=== PATIENT | male | born 1940 | race Caucasian/White ===

== ENCOUNTER 2016-07-21 23:53 | Emergency (ER) | payer MEDICARE ==
[~2016-07-21 23:53] MED LIST: ACET650T34 PO; AMLO5TAB2 PO; AMLO5TAB4 PO; ASPI325T4 PO; BISA10SU65 PR; CARB1TAB20 PO; CARB1TAB46 PO; CEFD300C37 PO; ERGO500017 PO; FAMO20TA7 PO; FURO20TA3 PO; FURO40TA6 PO; HYDR25TA6 PO; LISI40TA PO; LORA1TAB PO; LORA2TAB PO; METO25TA35 PO; ONDA-39 PO; POLY17PO5 PO; SENN1TAB7 PO; SIMV10TA PO; TRAM-28 PO; TRAM50TA2 PO; TRAZ100T15 PO; VALP250C59 PO
[2016-08-02] MEDS ORDERED: LISINOPRIL 20 MG TABLET ONE (17:53)
[2016-08-02] MEDS ORDERED: ACETAMINOPHEN 325 MG TABLET ONE (17:53)
[2016-08-20] MEDS ORDERED: BACITRACIN ZINC OINT 500U/GM, 0.9 GM ONE (09:53)
== END 2016-07-21 23:56 ==
LOC: ED 23:55
DX: Z02.9 Encounter for administrative examinations, unspecified (principal)

== ENCOUNTER 2016-07-21 23:57 | Inpatient (IN) | payer MEDICARE ==
[~2016-07-21] VITALS: Ht 170.2 cm; Wt 87.6 kg
[2016-07-22] MEDS ORDERED: PANTOPRAZOLE 80 MG in SODIUM CHLORIDE 0.9% 50 ML IVPB ONE (00:01)
[2016-07-22] MEDS ORDERED: PANTOPRAZOLE 80 MG in SODIUM CHLORIDE 0.9% 100 ML IV SCH (00:01)
[2016-07-22] MEDS ORDERED: ONDANSETRON 2MG/ML, 2ML ONE (00:05)
[2016-07-22] MEDS ORDERED: SODIUM CHLORIDE 0.9% 1,000ML IVBOLUS ONE (00:30)
[2016-07-22] MEDS ORDERED: SODIUM CHLORIDE FLUSH 10ML SYR IVF ONE (00:30)
[2016-07-22] MEDS ORDERED: CEFTRIAXONE PMX 1GM/50ML 50 ML IV ONE (00:30)
[2016-07-22] MEDS ORDERED: ONDANSETRON 2MG/ML, 2ML IVPush ONE (00:30)
[2016-07-22 01:02] LABS: ASPARTATE AMINO TRANSFERASE 17 U/L (15-37); BLOOD UREA NITROGEN 21 mg/dL (7-18)
[2016-07-22] MEDS ORDERED: CEFTRIAXONE PMX 1GM/50ML 50 ML ONE (01:21)
[2016-07-22] MEDS: SODIUM CHLORIDE 0.9% 1,000 ML IV SCH ×2 (01:38→13:00)
[2016-07-22] MEDS ORDERED: ONDANSETRON 2MG/ML, 2ML IV PRN (02:00)
[2016-07-22] MEDS ORDERED: ACETAMINOPHEN 325 MG TABLET PO PRN (02:00)
[2016-07-22] MEDS: CARBIDOPA/LEVODOPA 10 MG/100 MG TABLET PO SCH ×4 (02:00→20:47)
[2016-07-22 03:28] VITALS: BP 108/58
[2016-07-22] MEDS ORDERED: METOPROLOL TARTRATE 25 MG TABLET PO SCH (06:00)
[2016-07-22 06:39] VITALS: BP 118/63
[2016-07-22 07:27] LABS: BLOOD UREA NITROGEN 21 mg/dL (7-18)
[2016-07-22] MEDS: AMLODIPINE 5 MG TABLET PO SCH ×2 (09:18→20:47)
[2016-07-22] MEDS: LISINOPRIL 20 MG TABLET PO SCH (09:18)
[2016-07-22] MEDS: PANTOPRAZOLE 80 MG in SODIUM CHLORIDE 0.9% 100 ML IV SCH ×2 (11:17→20:47)
[2016-07-22 12:36] VITALS: BP 115/73
[2016-07-22] MEDS: CEFTRIAXONE PMX 1GM/50ML 50 ML IV SCH (15:11)
[2016-07-22] MEDS: SODIUM CHLORIDE 0.45% 1,000 ML IV SCH (17:30)
[2016-07-22] MEDS: METOPROLOL TARTRATE 25 MG TABLET PO SCH (17:53)
[2016-07-22 19:56] VITALS: BP 144/78
[2016-07-22] MEDS: VALPROIC ACID 250 MG CAPSULE PO SCH (20:47)
[2016-07-22] MEDS: TRAZODONE 50MG TABLET PO SCH (20:47)
[2016-07-23] MEDS ORDERED: SODIUM CHLORIDE 0.9% 1,000 ML IV SCH (01:38)
[2016-07-23 04:21] LABS: BLOOD UREA NITROGEN 12 mg/dL (7-18)
[2016-07-23 04:24] LABS: ASPARTATE AMINO TRANSFERASE 15 U/L (15-37)
[2016-07-23 04:40] VITALS: BP 128/62
[2016-07-23] MEDS: METOPROLOL TARTRATE 25 MG TABLET PO SCH (06:08)
[2016-07-23] MEDS: PANTOPRAZOLE 80 MG in SODIUM CHLORIDE 0.9% 100 ML IV SCH (06:08)
[2016-07-23] MEDS: SODIUM CHLORIDE 0.45% 1,000 ML IV SCH ×2 (06:09→21:12)
[2016-07-23 07:26] VITALS: BP 116/69
[2016-07-23] MEDS: POTASSIUM CHLORIDE 20 MEQ TAB.ER.PRT PO SCH ×2 (07:55→17:01)
[2016-07-23] MEDS: AMLODIPINE 5 MG TABLET PO SCH ×2 (07:56→21:45)
[2016-07-23] MEDS: CARBIDOPA/LEVODOPA 10 MG/100 MG TABLET PO SCH ×3 (07:56→21:45)
[2016-07-23] MEDS: LISINOPRIL 20 MG TABLET PO SCH (07:57)
[2016-07-23 12:21] VITALS: BP 109/46
[2016-07-23] MEDS: PANTOPRAZOLE 40 MG IV IVPush SCH (12:40)
[2016-07-23] MEDS: CEFTRIAXONE PMX 1GM/50ML 50 ML IV SCH (14:26)
[2016-07-23 19:55] VITALS: BP 147/71
[2016-07-23] MEDS: TRAZODONE 50MG TABLET PO SCH (21:45)
[2016-07-23] MEDS: VALPROIC ACID 250 MG CAPSULE PO SCH (21:45)
[2016-07-23] MEDS ORDERED: OMNIPAQUE 350 MG/ML, 75ML BOTTLE ONE (22:23)
[2016-07-23] MEDS: BISACODYL 10 MG SUPP PR SCH (23:35)
[2016-07-24] MEDS: PANTOPRAZOLE 40 MG IV IVPush SCH ×2 (00:49→11:40)
[2016-07-24 01:48] VITALS: BP 158/76
[2016-07-24 04:49] LABS: BLOOD UREA NITROGEN 8 mg/dL (7-18)
[2016-07-24 08:11] VITALS: BP 154/81
[2016-07-24] MEDS: BISACODYL 10 MG SUPP PR SCH ×2 (08:37→21:15)
[2016-07-24] MEDS: AMLODIPINE 5 MG TABLET PO SCH ×2 (08:38→21:15)
[2016-07-24] MEDS: LISINOPRIL 20 MG TABLET PO SCH (08:38)
[2016-07-24] MEDS: CARBIDOPA/LEVODOPA 10 MG/100 MG TABLET PO SCH ×3 (08:45→21:15)
[2016-07-24] MEDS: SODIUM CHLORIDE 0.45% 1,000 ML IV SCH ×2 (08:48→22:57)
[2016-07-24] MEDS ORDERED: BENZOCAINE 20% SPRAY 0.5ML ONE (10:37)
[2016-07-24] MEDS ORDERED: LIDOCAINE GEL 2%, 5ML ONE (10:38)
[2016-07-24 13:29] VITALS: BP 148/78
[2016-07-24] MEDS: CEFTRIAXONE PMX 1GM/50ML 50 ML IV SCH (14:08)
[2016-07-24 19:27] VITALS: BP 154/66
[2016-07-24] MEDS: TRAZODONE 50MG TABLET PO SCH (21:15)
[2016-07-24] MEDS: VALPROIC ACID 250 MG CAPSULE PO SCH (21:15)
[2016-07-25] MEDS: PANTOPRAZOLE 40 MG IV IVPush SCH ×2 (00:41→12:26)
[2016-07-25 01:02] VITALS: BP 116/54
[2016-07-25 08:40] VITALS: BP 127/67
[2016-07-25] MEDS: LISINOPRIL 20 MG TABLET PO SCH (10:15)
[2016-07-25] MEDS: CARBIDOPA/LEVODOPA 10 MG/100 MG TABLET PO SCH ×3 (10:15→21:54)
[2016-07-25] MEDS: AMLODIPINE 5 MG TABLET PO SCH ×2 (10:15→21:54)
[2016-07-25] MEDS: BISACODYL 10 MG SUPP PR SCH ×2 (10:16→21:00)
[2016-07-25 12:30] VITALS: BP 113/69
[2016-07-25] MEDS: CEFTRIAXONE PMX 1GM/50ML 50 ML IV SCH (14:39)
[2016-07-25 19:00] VITALS: BP 132/75
[2016-07-25] MEDS: TRAZODONE 50MG TABLET PO SCH (21:54)
[2016-07-25] MEDS: VALPROIC ACID 250 MG CAPSULE PO SCH (21:54)
[2016-07-26 01:53] VITALS: BP 123/71
[2016-07-26 06:49] VITALS: BP 138/76
[2016-07-26] MEDS ORDERED: PANTOPROZOLE 40MG TABLET PO SCH (07:30)
[2016-07-26] MEDS: BISACODYL 10 MG SUPP PR SCH (09:00)
[2016-07-26] MEDS ORDERED: CEFD300C37 PO (09:12)
[2016-07-26] MEDS ORDERED: PANT40TA5 PO (09:12)
[2016-07-26] MEDS: AMLODIPINE 5 MG TABLET PO SCH (10:29)
[2016-07-26] MEDS: CARBIDOPA/LEVODOPA 10 MG/100 MG TABLET PO SCH (10:29)
[2016-07-26] MEDS: LISINOPRIL 20 MG TABLET PO SCH (10:29)
== END 2016-07-26 14:50 | DRG 378 ==
LOC: ED 23:59 → EDIP 07-22 01:08 → SUATTDRO 07-22 01:38 → 4WST 07-22 03:25
PROVIDERS: ADMIT Internal Medicine; ATTEND Internal Medicine
PROC: 0T9B70Z Drainage of Bladder with Drainage Device, Via Natural or Artificial Opening (ICD-10-PCS; principal; 2016-07-22)
PROC: 0D9670Z Drainage of Stomach with Drainage Device, Via Natural or Artificial Opening (ICD-10-PCS; 2016-07-24)
DX: K92.2 Gastrointestinal hemorrhage, unspecified (principal); E87.0 Hyperosmolality and hypernatremia; K56.60 Unspecified intestinal obstruction; N39.0 Urinary tract infection, site not specified; G20 Parkinson's disease; F02.80 Dementia in other diseases classified elsewhere, unspecified severity, without behavioral disturbance, psychotic disturbance, mood disturbance, and anxiety; G40.909 Epilepsy, unspecified, not intractable, without status epilepticus; Z66 Do not resuscitate; B95.1 Streptococcus, group B, as the cause of diseases classified elsewhere; G30.9 Alzheimer's disease, unspecified; I11.9 Hypertensive heart disease without heart failure; I25.10 Atherosclerotic heart disease of native coronary artery without angina pectoris; Z86.73 Personal history of transient ischemic attack (TIA), and cerebral infarction without residual deficits; Z79.82 Long term (current) use of aspirin; Z79.899 Other long term (current) drug therapy
CPT/HCPCS: 36415; 71010; 71260; 74000; 74020; 74340; 80048; 80053; 81001; 83605; 83690; 84145; 85014; 85018; 85025; 85610; 86850; 86900; 87040; 87086; 87147; 93005; 96365; 96367; 96368; 96375; J0696; J2405; Q9967; C9113; J7030

== ENCOUNTER 2016-09-10 21:39 | Inpatient (IN) | payer MEDICARE ==
[~2016-09-10] VITALS: Ht 180.3 cm; Wt 81.3 kg
[~2016-09-10 21:39] MED LIST changes: +ACET-1770 PO; -ACET650T34 PO; +PANT40TA5 PO
[2016-09-10] MEDS ORDERED: SODIUM CHLORIDE FLUSH 10ML SYR IVF ONE (22:00)
[2016-09-10] MEDS ORDERED: ACETAMINOPHEN 500 MG TABLET PO ONE (22:30)
[2016-09-10] MEDS ORDERED: ACETAMINOPHEN 650 MG SUPP ONE (22:50)
[2016-09-10 22:52] LABS: ASPARTATE AMINO TRANSFERASE 24 U/L (15-37); BLOOD UREA NITROGEN 14 mg/dL (7-18)
[2016-09-10 23:09] LABS: LARGE PLATELETS 1+
[2016-09-10] MEDS ORDERED: ACETAMINOPHEN 325 MG SUPP PR STA ×2 (23:52)
[2016-09-11] MEDS ORDERED: CEFTRIAXONE PMX 1GM/50ML 50 ML ONE ×2 (00:16)
[2016-09-11] MEDS ORDERED: CEFTRIAXONE PMX 1GM/50ML 50 ML IV ONE (00:30)
[2016-09-11 01:25] VITALS: BP 152/80
[2016-09-11] MEDS: DIVALPROEX 250 MG TABLET.DR PO SCH ×4 (01:30→22:00)
[2016-09-11] MEDS: SODIUM CHLORIDE 0.9% 1,000 ML IV SCH ×4 (02:20→21:50)
[2016-09-11 07:38] VITALS: BP 132/73
[2016-09-11] MEDS: ENOXAPARIN 40 MG/0.4 ML SQ SCH (09:17)
[2016-09-11 12:32] VITALS: BP 132/67
[2016-09-11 19:30] VITALS: BP 148/78
[2016-09-11] MEDS ORDERED: ACETAMINOPHEN 325 MG TABLET PO PRN (20:30)
[2016-09-11] MEDS ORDERED: ONDANSETRON 2MG/ML, 2ML ONE (21:44)
[2016-09-11] MEDS: SIMVASTATIN 10 MG TABLET PO SCH (22:00)
[2016-09-11] MEDS ORDERED: ONDANSETRON 2MG/ML, 2ML IVPush PRN (22:00)
[2016-09-12] MEDS: CEFTRIAXONE PMX 2GM/50ML 50 ML IVPB SCH (00:12)
[2016-09-12 00:15] VITALS: BP 133/66
[2016-09-12 05:13] LABS: BLOOD UREA NITROGEN 12 mg/dL (7-18)
[2016-09-12] MEDS: SODIUM CHLORIDE 0.9% 1,000 ML IV SCH ×2 (05:20→09:23)
[2016-09-12 06:55] VITALS: BP 174/74
[2016-09-12] MEDS: DIVALPROEX 250 MG TABLET.DR PO SCH ×3 (09:22→19:26)
[2016-09-12] MEDS: ENOXAPARIN 40 MG/0.4 ML SQ SCH (09:23)
[2016-09-12 14:09] VITALS: BP 149/74
[2016-09-12 19:03] VITALS: BP 105/69
[2016-09-12] MEDS: SIMVASTATIN 10 MG TABLET PO SCH (19:26)
[2016-09-13] MEDS: CEFTRIAXONE PMX 2GM/50ML 50 ML IVPB SCH (01:00)
[2016-09-13 01:33] VITALS: BP 155/81
[2016-09-13 06:22] LABS: BLOOD UREA NITROGEN 10 mg/dL (7-18)
[2016-09-13 07:51] VITALS: BP 174/79
[2016-09-13] MEDS: DIVALPROEX 250 MG TABLET.DR PO SCH ×3 (08:53→20:50)
[2016-09-13] MEDS: ENOXAPARIN 40 MG/0.4 ML SQ SCH (08:54)
[2016-09-13] MEDS ORDERED: POTASSIUM CHLORIDE 20 MEQ TAB.ER.PRT PO ONE (15:00)
[2016-09-13] MEDS: DOXYCYCLINE 100 MG in DEXTROSE 5% 250 ML IV SCH (18:08)
[2016-09-13 19:57] VITALS: BP 149/87
[2016-09-13] MEDS: SIMVASTATIN 10 MG TABLET PO SCH (20:50)
[2016-09-14] MEDS: CEFTRIAXONE PMX 2GM/50ML 50 ML IVPB SCH (00:44)
[2016-09-14 01:20] VITALS: BP 160/86
[2016-09-14] MEDS: DOXYCYCLINE 100 MG in DEXTROSE 5% 250 ML IV SCH (06:01)
[2016-09-14 07:50] VITALS: BP 135/74
[2016-09-14] MEDS: DIVALPROEX 250 MG TABLET.DR PO SCH ×3 (10:00→21:53)
[2016-09-14] MEDS: ENOXAPARIN 40 MG/0.4 ML SQ SCH (10:00)
[2016-09-14] MEDS ORDERED: POTASSIUM CHLORIDE 20 MEQ TAB.ER.PRT PO ONE (14:00)
[2016-09-14] MEDS ORDERED: POTASSIUM CHLORIDE 40 MEQ in SODIUM CHLORIDE 0.9% 500 ML IV ONE (15:00)
[2016-09-14 15:13] VITALS: BP 149/73
[2016-09-14] MEDS ORDERED: PHARMACOKINETIC MONITORING MC PRN (15:30)
[2016-09-14] MEDS ORDERED: VANCOMYCIN PER PHARMACY MC PRN (15:30)
[2016-09-14] MEDS ORDERED: ONDANSETRON 2MG/ML, 2ML IVPush ONE (15:30)
[2016-09-14] MEDS ORDERED: PHARMACOKINETIC CONSULTATION MC ONE (16:00)
[2016-09-14] MEDS: CARBIDOPA LEVO PO SCH ×2 (16:00→21:00)
[2016-09-14] MEDS: PIPERACILLIN/TAZO 3.375 GM in SODIUM CHLORIDE 0.9% 50 ML IV SCH (16:30)
[2016-09-14] MEDS: VANCOMYCIN 1,500 MG in SODIUM CHLORIDE 0.9% 250 ML IV SCH (17:15)
[2016-09-14] MEDS: METOPROLOL TARTRATE 25 MG TABLET PO SCH (18:12)
[2016-09-14 21:35] VITALS: BP 169/90
[2016-09-14] MEDS: SIMVASTATIN 10 MG TABLET PO SCH (21:53)
[2016-09-14] MEDS: DOCUSATE 100 MG CAPSULE PO SCH (21:53)
[2016-09-15] MEDS: SODIUM CHLORIDE 0.9% 1,000 ML IV SCH ×2 (00:04→13:46)
[2016-09-15] MEDS: PIPERACILLIN/TAZO 3.375 GM in SODIUM CHLORIDE 0.9% 50 ML IV SCH ×4 (00:04→23:43)
[2016-09-15 02:55] VITALS: BP 142/82
[2016-09-15 06:18] LABS: BLOOD UREA NITROGEN 13 mg/dL (7-18)
[2016-09-15] MEDS: METOPROLOL TARTRATE 25 MG TABLET PO SCH ×2 (06:32→18:25)
[2016-09-15 08:21] VITALS: BP 147/88
[2016-09-15] MEDS: DOCUSATE 100 MG CAPSULE PO SCH ×2 (08:28→19:55)
[2016-09-15] MEDS: PANTOPROZOLE 40MG TABLET PO SCH (08:28)
[2016-09-15] MEDS: LISINOPRIL 20 MG TABLET PO SCH (08:28)
[2016-09-15] MEDS: DIVALPROEX 250 MG TABLET.DR PO SCH ×3 (08:28→19:55)
[2016-09-15] MEDS: ENOXAPARIN 40 MG/0.4 ML SQ SCH (08:28)
[2016-09-15] MEDS: CARBIDOPA LEVO PO SCH (08:28)
[2016-09-15] MEDS: VANCOMYCIN 1,500 MG in SODIUM CHLORIDE 0.9% 250 ML IV SCH (11:47)
[2016-09-15 13:09] VITALS: BP 116/58
[2016-09-15] MEDS: CARBIDOPA/LEVODOPA 10 MG/100 MG TABLET PO SCH ×3 (13:46→19:55)
[2016-09-15 18:31] VITALS: BP 146/76
[2016-09-15] MEDS: SIMVASTATIN 10 MG TABLET PO SCH (19:55)
[2016-09-16 01:30] VITALS: BP 139/89
[2016-09-16] MEDS: VANCOMYCIN 1,500 MG in SODIUM CHLORIDE 0.9% 250 ML IV SCH ×2 (04:00→21:45)
[2016-09-16] MEDS: METOPROLOL TARTRATE 25 MG TABLET PO SCH ×2 (05:42→17:40)
[2016-09-16 07:30] VITALS: BP 154/76
[2016-09-16] MEDS: PANTOPROZOLE 40MG TABLET PO SCH (07:32)
[2016-09-16] MEDS: PIPERACILLIN/TAZO 3.375 GM in SODIUM CHLORIDE 0.9% 50 ML IV SCH ×2 (07:32→15:03)
[2016-09-16] MEDS: DIVALPROEX 250 MG TABLET.DR PO SCH ×3 (08:33→21:45)
[2016-09-16] MEDS: DOCUSATE 100 MG CAPSULE PO SCH ×2 (08:33→19:30)
[2016-09-16] MEDS: CARBIDOPA/LEVODOPA 10 MG/100 MG TABLET PO SCH ×3 (08:34→21:45)
[2016-09-16] MEDS: LISINOPRIL 20 MG TABLET PO SCH (08:34)
[2016-09-16] MEDS: ENOXAPARIN 40 MG/0.4 ML SQ SCH (08:39)
[2016-09-16 14:30] VITALS: BP 132/76
[2016-09-16 19:02] VITALS: BP 140/82
[2016-09-16] MEDS: SIMVASTATIN 10 MG TABLET PO SCH (21:45)
[2016-09-17] MEDS: PIPERACILLIN/TAZO 3.375 GM in SODIUM CHLORIDE 0.9% 50 ML IV SCH ×3 (00:52→16:59)
[2016-09-17 01:54] VITALS: BP 139/85
[2016-09-17] MEDS: METOPROLOL TARTRATE 25 MG TABLET PO SCH ×2 (05:20→16:59)
[2016-09-17 07:11] VITALS: BP 143/99
[2016-09-17] MEDS: LISINOPRIL 20 MG TABLET PO SCH (09:11)
[2016-09-17] MEDS: DIVALPROEX 250 MG TABLET.DR PO SCH ×3 (09:11→21:38)
[2016-09-17] MEDS: DOCUSATE 100 MG CAPSULE PO SCH ×2 (09:11→20:27)
[2016-09-17] MEDS: PANTOPROZOLE 40MG TABLET PO SCH (09:11)
[2016-09-17] MEDS: CARBIDOPA/LEVODOPA 10 MG/100 MG TABLET PO SCH ×3 (09:12→21:37)
[2016-09-17 12:44] VITALS: BP 188/95
[2016-09-17] MEDS: hydrALAzine 20 MG/ML, 1ML IV PRN (15:16)
[2016-09-17] MEDS: VANCOMYCIN 1,500 MG in SODIUM CHLORIDE 0.9% 250 ML IV SCH (16:00)
[2016-09-17 18:51] VITALS: BP 160/76
[2016-09-17 20:28] VITALS: BP 162/76
[2016-09-17] MEDS: SIMVASTATIN 10 MG TABLET PO SCH (21:38)
[2016-09-18 00:36] VITALS: BP 171/90
[2016-09-18] MEDS: PIPERACILLIN/TAZO 3.375 GM in SODIUM CHLORIDE 0.9% 50 ML IV SCH ×2 (01:00→09:00)
[2016-09-18] MEDS: hydrALAzine 20 MG/ML, 1ML IV PRN (01:22)
[2016-09-18 05:10] LABS: BLOOD UREA NITROGEN 12 mg/dL (7-18)
[2016-09-18] MEDS: METOPROLOL TARTRATE 25 MG TABLET PO SCH ×2 (05:58→17:34)
[2016-09-18 06:10] VITALS: BP 142/66
[2016-09-18 07:11] VITALS: BP 150/90
[2016-09-18] MEDS: DOCUSATE 100 MG CAPSULE PO SCH ×2 (09:00→21:00)
[2016-09-18] MEDS ORDERED: VANCOMYCIN 1,300 MG in SODIUM CHLORIDE 0.9% 250 ML IV SCH (09:00)
[2016-09-18] MEDS: CARBIDOPA/LEVODOPA 10 MG/100 MG TABLET PO SCH ×3 (09:01→21:07)
[2016-09-18] MEDS: PANTOPROZOLE 40MG TABLET PO SCH (09:01)
[2016-09-18] MEDS: DIVALPROEX 250 MG TABLET.DR PO SCH ×3 (09:01→21:07)
[2016-09-18] MEDS: LISINOPRIL 20 MG TABLET PO SCH (09:02)
[2016-09-18 13:10] VITALS: BP 132/69
[2016-09-18] MEDS ORDERED: POTASSIUM CHLORIDE 20 MEQ TAB.ER.PRT PO ONE (15:00)
[2016-09-18] MEDS: SODIUM CHLORIDE 0.9% 1,000 ML IV SCH ×2 (16:29→20:11)
[2016-09-18 18:49] VITALS: BP 180/71
[2016-09-18] MEDS ORDERED: hydrALAzine 20 MG/ML, 1ML IV ONE (20:00)
[2016-09-18] MEDS: DOXYCYCLINE 100MG TABLET PO SCH (21:07)
[2016-09-18] MEDS: CEFDINIR 300 MG CAPSULE PO SCH (21:07)
[2016-09-18] MEDS: SIMVASTATIN 10 MG TABLET PO SCH (21:07)
[2016-09-19] VITALS (7 sets, daily range): BP systolic 128–188; BP diastolic 68–96
[2016-09-19] MEDS: METOPROLOL TARTRATE 25 MG TABLET PO SCH ×2 (06:00→06:49)
[2016-09-19] MEDS: DOCUSATE 100 MG CAPSULE PO SCH ×2 (07:59→21:31)
[2016-09-19] MEDS: PANTOPROZOLE 40MG TABLET PO SCH (09:41)
[2016-09-19] MEDS: SODIUM CHLORIDE 0.9% 1,000 ML IV SCH (09:41)
[2016-09-19] MEDS: CARBIDOPA/LEVODOPA 10 MG/100 MG TABLET PO SCH ×3 (09:42→21:30)
[2016-09-19] MEDS: LISINOPRIL 20 MG TABLET PO SCH (09:42)
[2016-09-19] MEDS: DIVALPROEX 250 MG TABLET.DR PO SCH ×3 (09:42→21:31)
[2016-09-19] MEDS: DOXYCYCLINE 100MG TABLET PO SCH ×2 (09:42→21:31)
[2016-09-19] MEDS: CEFDINIR 300 MG CAPSULE PO SCH ×2 (09:42→21:31)
[2016-09-19] MEDS ORDERED: MAGNESIUM SULFATE PMX 2GM/50ML 50 ML IV ONE (10:00)
[2016-09-19] MEDS: AMLODIPINE 5 MG TABLET PO SCH (12:16)
[2016-09-19 12:37] LABS: IS PT STATUS REG ER OR PRE ER? NO
[2016-09-19] MEDS ORDERED: hydrALAzine 20 MG/ML, 1ML IV PRN (19:00)
[2016-09-19] MEDS: SIMVASTATIN 10 MG TABLET PO SCH (21:31)
[2016-09-20 02:00] VITALS: BP 185/69
[2016-09-20] MEDS: SODIUM CHLORIDE 0.9% 1,000 ML IV SCH (03:50)
[2016-09-20 06:59] VITALS: BP 162/75
[2016-09-20] MEDS: LISINOPRIL 20 MG TABLET PO SCH (09:02)
[2016-09-20] MEDS: CEFDINIR 300 MG CAPSULE PO SCH (09:02)
[2016-09-20] MEDS: AMLODIPINE 5 MG TABLET PO SCH (09:02)
[2016-09-20] MEDS: DIVALPROEX 250 MG TABLET.DR PO SCH ×2 (09:02→16:16)
[2016-09-20] MEDS: DOXYCYCLINE 100MG TABLET PO SCH (09:02)
[2016-09-20] MEDS: CARBIDOPA/LEVODOPA 10 MG/100 MG TABLET PO SCH ×2 (09:02→16:16)
[2016-09-20] MEDS: DOCUSATE 100 MG CAPSULE PO SCH (09:04)
[2016-09-20] MEDS: PANTOPROZOLE 40MG TABLET PO SCH (09:04)
[2016-09-20 13:05] VITALS: BP 149/70
[2016-09-20] MEDS ORDERED: CEFD300C37 PO (15:46)
[2016-09-20] MEDS ORDERED: DOXY100T PO (15:46)
== END 2016-09-20 17:14 | disposition home or self-care (01) | DRG 871 ==
LOC: ED 22:05 → EDIP 09-11 00:03 → 3NE 09-11 01:25 → 4EST 09-19 10:58
PROVIDERS: ADMIT Internal Medicine; ATTEND Internal Medicine
PROC: 0T9B70Z Drainage of Bladder with Drainage Device, Via Natural or Artificial Opening (ICD-10-PCS; principal; 2016-09-10)
DX: A41.9 Sepsis, unspecified organism (principal); G93.41 Metabolic encephalopathy; N17.0 Acute kidney failure with tubular necrosis; J69.0 Pneumonitis due to inhalation of food and vomit; N39.0 Urinary tract infection, site not specified; E87.0 Hyperosmolality and hypernatremia; K56.7 Ileus, unspecified; D69.6 Thrombocytopenia, unspecified; F02.80 Dementia in other diseases classified elsewhere, unspecified severity, without behavioral disturbance, psychotic disturbance, mood disturbance, and anxiety; G20 Parkinson's disease; G30.9 Alzheimer's disease, unspecified; G40.909 Epilepsy, unspecified, not intractable, without status epilepticus; I11.9 Hypertensive heart disease without heart failure; Z53.20 Procedure and treatment not carried out because of patient's decision for unspecified reasons; Z66 Do not resuscitate; Z86.73 Personal history of transient ischemic attack (TIA), and cerebral infarction without residual deficits; Z88.2 Allergy status to sulfonamides
CPT/HCPCS: 36415; 70450; 71010; 74000; 80048; 80053; 80202; 81001; 82010; 82140; 83605; 83690; 83880; 84145; 84439; 84443; 84484; 85025; 85610; 87040; 87086; 93005; 96372; J0696; J1650; J2405; J2543; J3370; J3480; J7060; J0360; J3475; J7030; J7040; J7050

== ENCOUNTER 2017-10-10 15:35 | Inpatient (IN) | payer MEDICARE ==
[~2017-10-10] VITALS: Ht 160 cm; Wt 60.3 kg
[~2017-10-10 15:35] MED LIST changes: -AMLO5TAB2 PO; +AMLO5TAB7 PO; +ASPI-650 PO; +ASPI325T17 PO; -ASPI325T4 PO; +DOXY100T PO; +LACT20SO13 PO; -ONDA-39 PO; +ONDA4TAB12 PO; -SENN1TAB7 PO; +SENN1TAB8 PO; -TRAM-28 PO; +TRAM-47 PO; +TRAZ-137 PO; -TRAZ100T15 PO
[2017-10-10] MEDS ORDERED: SODIUM CHLORIDE 0.9% 1,000ML IVBOLUS ONE (16:00)
[2017-10-10] MEDS ORDERED: SODIUM CHLORIDE FLUSH 10ML SYR IVF ONE (16:00)
[2017-10-10] MEDS ORDERED: PLEASE ENTER HEIGHT AND WEIGHT MC SCH (16:30)
[2017-10-10] MEDS ORDERED: CEFTRIAXONE 1,000 MG in SODIUM CHLORIDE 0.9% 50 ML IVPB ONE (16:30)
[2017-10-10] MEDS ORDERED: LIDOCAINE-MPF 1%, 2ML ONE (17:06)
[2017-10-10] MEDS ORDERED: ENALAPRILAT 1.25 MG/ML, 2ML IVPush PRN (17:30)
[2017-10-10] MEDS ORDERED: VANCOMYCIN PER PHARMACY MC PRN ×2 (17:30→18:00)
[2017-10-10] MEDS ORDERED: PIPERACILLIN/TAZO/PMX 3.375GM 50 ML ONE (17:53)
[2017-10-10] MEDS ORDERED: CEFTRIAXONE PMX 1GM/50ML 50 ML ONE (17:53)
[2017-10-10] MEDS ORDERED: VANCOMYCIN PMX 1GM/200ML 200 ML IV ONE (18:00)
[2017-10-10 18:57] LABS: ALANINE AMINOTRANSFERASE 41 U/L (12-78); ANION GAP 11 mmol/L (5-15); CALCIUM 8.7 mg/dL (8.5-10.1); CHLORIDE 105 mmol/L (98-107); CREATININE 0.67 mg/dL (0.7-1.3)
[2017-10-10 19:03] LABS: ALKALINE PHOSPHATASE 103 U/L (45-117); BILIRUBIN,TOTAL 0.5 mg/dL (0.2-1.0); TOTAL PROTEIN 6.8 g/dL (6.4-8.2)
[2017-10-10 19:05] LABS: BASOPHILS # (AUTO) 0.05 x10^3/uL (0-0.1); BASOPHILS % (AUTO) 0 % (0-1); EOSINOPHILS # (AUTO) 0.02 x10^3/uL (0-0.4); EOSINOPHILS % (AUTO) 0 % (1-7); LYMPHOCYTES # (AUTO) 1.48 x10^3/uL (1-3.4); LYMPHOCYTES % (AUTO) 11 % (22-44); MD SCAN; MEAN CORPUSCULAR HEMOGLOBIN 30.7 pg (27.5-34.5); MEAN CORPUSCULAR HGB CONC 32.4 g/dL (33.2-36.2); MEAN CORPUSCULAR VOLUME 94.7 fL (81-97); MEAN PLATELET VOLUME 8.4 fL (7.4-10.4); MONOCYTES # (AUTO) 0.57 x10^3/uL (0.2-0.8); MONOCYTES % (AUTO) 4 % (2-9); NEUTROPHILS # (AUTO) 11.23 x10^3/uL (1.8-6.8); NEUTROPHILS % (AUTO) 84 % (42-75); PLATELET COUNT 313 x10^3/uL (130-400); RED BLOOD COUNT 3.29 x10^6/uL (4.38-5.82); RED CELL DISTRIBUTION WIDTH 15.6 % (9.4-14.8)
[2017-10-10 19:36] LABS: HCT (SEDRATE) 41.2 % (39.2-51.8)
[2017-10-10 19:39] VITALS: BP 129/67
[2017-10-10] MEDS ORDERED: PHARMACOKINETIC CONSULTATION MC ONE (20:00)
[2017-10-10] MEDS: SODIUM CHLORIDE 0.9% 1,000 ML IV SCH ×2 (20:00→21:00)
[2017-10-10] MEDS ORDERED: PHARMACOKINETIC MONITORING MC PRN (20:00)
[2017-10-10 21:18] LABS: CULTURE INDICATED? YES; MICROSCOPIC INDICATED
[2017-10-10] MEDS: PIPERACILLIN/TAZO/PMX 3.375GM 50 ML IV SCH (21:59)
[2017-10-10] MEDS: VANCOMYCIN PMX 1GM/200ML 200 ML IV SCH (22:42)
[2017-10-10] MEDS: HEPARIN 5,000 UNITS/ML, 1ML SQ SCH (23:25)
[2017-10-11] MEDS: SODIUM CHLORIDE 0.9% 1,000 ML IV SCH ×4 (03:15→17:29)
[2017-10-11 05:45] LABS: CULTURE INDICATED? YES; MICROSCOPIC INDICATED
[2017-10-11 05:47] LABS: ALBUMIN 1.5 g/dL (3.4-5.0); ANION GAP 6 mmol/L (5-15); CALCIUM 8.1 mg/dL (8.5-10.1); CHLORIDE 109 mmol/L (98-107)
[2017-10-11] MEDS: PIPERACILLIN/TAZO/PMX 3.375GM 50 ML IV SCH ×3 (05:48→21:33)
[2017-10-11 05:51] LABS: ALANINE AMINOTRANSFERASE 36 U/L (12-78); ALKALINE PHOSPHATASE 76 U/L (45-117); BILIRUBIN,TOTAL 0.4 mg/dL (0.2-1.0); CREATININE 0.58 mg/dL (0.7-1.3); TOTAL PROTEIN 5.3 g/dL (6.4-8.2)
[2017-10-11 05:52] LABS: BASOPHILS # (AUTO) 0.06 x10^3/uL (0-0.1); BASOPHILS % (AUTO) 1 % (0-1); EOSINOPHILS # (AUTO) 0.01 x10^3/uL (0-0.4); EOSINOPHILS % (AUTO) 0 % (1-7); LYMPHOCYTES # (AUTO) 0.66 x10^3/uL (1-3.4); LYMPHOCYTES % (AUTO) 6 % (22-44); MD NO; MEAN CORPUSCULAR HEMOGLOBIN 31.4 pg (27.5-34.5); MEAN CORPUSCULAR HGB CONC 33.2 g/dL (33.2-36.2); MEAN CORPUSCULAR VOLUME 94.7 fL (81-97); MEAN PLATELET VOLUME 8.8 fL (7.4-10.4); MONOCYTES # (AUTO) 0.25 x10^3/uL (0.2-0.8); MONOCYTES % (AUTO) 2 % (2-9); NEUTROPHILS # (AUTO) 9.96 x10^3/uL (1.8-6.8); NEUTROPHILS % (AUTO) 91 % (42-75); PLATELET COUNT 240 x10^3/uL (130-400); RED BLOOD COUNT 2.62 x10^6/uL (4.38-5.82); RED CELL DISTRIBUTION WIDTH 15.6 % (9.4-14.8)
[2017-10-11 05:59] VITALS: BP 105/58
[2017-10-11] MEDS: HEPARIN 5,000 UNITS/ML, 1ML SQ SCH ×3 (07:30→21:38)
[2017-10-11 07:42] VITALS: BP 101/62
[2017-10-11 12:39] VITALS: BP 115/65
[2017-10-11] MEDS: MORPHINE SULFATE 4 MG/ML, 1ML IVPush PRN (12:51)
[2017-10-11 21:30] VITALS: BP 125/62
[2017-10-12 01:49] VITALS: BP 135/68
[2017-10-12] MEDS: MORPHINE SULFATE 4 MG/ML, 1ML IVPush PRN ×2 (04:02→15:55)
[2017-10-12] MEDS: PIPERACILLIN/TAZO/PMX 3.375GM 50 ML IV SCH ×3 (05:40→21:42)
[2017-10-12 07:28] VITALS: BP 125/64
[2017-10-12] MEDS: VANCOMYCIN PMX 1GM/200ML 200 ML IV SCH (08:40)
[2017-10-12] MEDS: SODIUM CHLORIDE 0.9% 1,000 ML IV SCH ×2 (08:41→21:42)
[2017-10-12] MEDS: HEPARIN 5,000 UNITS/ML, 1ML SQ SCH ×3 (08:41→23:42)
[2017-10-12] MEDS ORDERED: CIPROFLOXACIN OPHTH SOLN 0.3%, 5ML EACHEYE SCH (09:00)
[2017-10-12 13:46] VITALS: BP 140/81
[2017-10-12 18:46] VITALS: BP 122/63
[2017-10-12] MEDS: CIPROFLOXACIN OPHTH SOLN 0.3%, 5ML EACHEYE SCH (21:00)
[2017-10-12 23:20] VITALS: BP 120/65
[2017-10-13 00:58] VITALS: BP 116/63
[2017-10-13 03:49] LABS: CREATININE 0.55 mg/dL (0.7-1.3)
[2017-10-13] MEDS: PIPERACILLIN/TAZO/PMX 3.375GM 50 ML IV SCH (05:52)
[2017-10-13 06:31] VITALS: BP 149/84
[2017-10-13] MEDS: SODIUM CHLORIDE 0.9% 1,000 ML IV SCH (10:50)
[2017-10-13] MEDS: HEPARIN 5,000 UNITS/ML, 1ML SQ SCH ×2 (10:51→20:47)
[2017-10-13] MEDS: DOXYCYCLINE 100MG TABLET PO SCH ×2 (10:51→20:47)
[2017-10-13] MEDS: MORPHINE SULFATE 4 MG/ML, 1ML IVPush PRN (10:51)
[2017-10-13] MEDS: AMOXICILLIN/CLAV 875-125MG TABLET PO SCH ×2 (10:51→20:47)
[2017-10-13] MEDS: CIPROFLOXACIN OPHTH SOLN 0.3%, 5ML EACHEYE SCH ×2 (11:56→20:47)
[2017-10-13 12:08] VITALS: BP 144/78
[2017-10-13 19:17] VITALS: BP 122/76
[2017-10-14] MEDS: SODIUM CHLORIDE 0.9% 1,000 ML IV SCH ×2 (00:23→13:57)
[2017-10-14 01:08] VITALS: BP 131/77
[2017-10-14] MEDS: HEPARIN 5,000 UNITS/ML, 1ML SQ SCH ×3 (03:00→20:59)
[2017-10-14 07:28] VITALS: BP 147/79
[2017-10-14] MEDS: AMOXICILLIN/CLAV 875-125MG TABLET PO SCH ×2 (08:47→20:48)
[2017-10-14] MEDS: DOXYCYCLINE 100MG TABLET PO SCH ×2 (08:47→20:48)
[2017-10-14] MEDS: CIPROFLOXACIN OPHTH SOLN 0.3%, 5ML EACHEYE SCH ×2 (08:52→20:49)
[2017-10-14 12:00] VITALS: BP 143/89
[2017-10-14] MEDS: ONDANSETRON 2MG/ML, 2ML IVPush PRN ×2 (14:00→20:49)
[2017-10-14] MEDS ORDERED: PROMETHAZINE 25MG TABLET PO PRN (15:30)
[2017-10-14 19:28] VITALS: BP 121/75
[2017-10-15 01:12] VITALS: BP 117/71
[2017-10-15] MEDS: SODIUM CHLORIDE 0.9% 1,000 ML IV SCH ×2 (03:00→16:00)
[2017-10-15] MEDS: HEPARIN 5,000 UNITS/ML, 1ML SQ SCH (05:30)
[2017-10-15] MEDS: ENOXAPARIN 40 MG/0.4 ML SQ SCH (06:30)
[2017-10-15 07:26] VITALS: BP 120/76
[2017-10-15] MEDS: CIPROFLOXACIN OPHTH SOLN 0.3%, 5ML EACHEYE SCH ×2 (08:35→21:49)
[2017-10-15] MEDS: AMOXICILLIN/CLAV 875-125MG TABLET PO SCH ×2 (08:35→21:49)
[2017-10-15] MEDS: DOXYCYCLINE 100MG TABLET PO SCH ×2 (08:36→21:49)
[2017-10-15 12:55] VITALS: BP 125/77
[2017-10-15] MEDS ORDERED: SODIUM CHLORIDE 0.9% 1,000 ML IV ONE (18:30)
[2017-10-15 19:09] VITALS: BP 142/75
[2017-10-16 00:22] VITALS: BP 129/85
[2017-10-16] MEDS: ENOXAPARIN 40 MG/0.4 ML SQ SCH (05:55)
[2017-10-16 06:55] VITALS: BP 132/81
[2017-10-16] MEDS: CIPROFLOXACIN OPHTH SOLN 0.3%, 5ML EACHEYE SCH ×2 (09:00→22:30)
[2017-10-16] MEDS: DOXYCYCLINE 100MG TABLET PO SCH ×2 (09:21→22:29)
[2017-10-16] MEDS: SODIUM CHLORIDE 0.9% 1,000 ML IV SCH ×2 (09:21→22:42)
[2017-10-16] MEDS: AMOXICILLIN/CLAV 875-125MG TABLET PO SCH ×2 (09:21→22:29)
[2017-10-16 14:08] VITALS: BP 139/83
[2017-10-16 19:26] VITALS: BP 144/82
[2017-10-17 00:58] VITALS: BP 136/73
[2017-10-17 04:07] LABS: CREATININE 0.36 mg/dL (0.7-1.3)
[2017-10-17] MEDS: ENOXAPARIN 40 MG/0.4 ML SQ SCH (06:12)
[2017-10-17 07:25] VITALS: BP 154/70
[2017-10-17] MEDS: CIPROFLOXACIN OPHTH SOLN 0.3%, 5ML EACHEYE SCH ×2 (09:00→21:00)
[2017-10-17] MEDS: DOXYCYCLINE 100MG TABLET PO SCH ×2 (09:40→22:00)
[2017-10-17] MEDS: AMOXICILLIN/CLAV 875-125MG TABLET PO SCH ×2 (09:51→22:00)
[2017-10-17] MEDS ORDERED: DOXY100T PO (10:06)
[2017-10-17] MEDS ORDERED: AMOX1TAB12 PO (10:06)
[2017-10-17] MEDS: SODIUM CHLORIDE 0.9% 1,000 ML IV SCH (12:35)
[2017-10-17 14:00] VITALS: BP 148/90
[2017-10-17 20:08] VITALS: BP 169/61
[2017-10-18 01:37] VITALS: BP 158/88
[2017-10-18] MEDS: SODIUM CHLORIDE 0.9% 1,000 ML IV SCH ×2 (02:25→17:04)
[2017-10-18 07:11] VITALS: BP 147/86
[2017-10-18] MEDS: ENOXAPARIN 40 MG/0.4 ML SQ SCH (08:54)
[2017-10-18] MEDS: DOXYCYCLINE 100MG TABLET PO SCH ×3 (08:55→21:00)
[2017-10-18] MEDS: CIPROFLOXACIN OPHTH SOLN 0.3%, 5ML EACHEYE SCH ×2 (08:55→20:01)
[2017-10-18] MEDS: AMLODIPINE 5 MG TABLET PO SCH (08:55)
[2017-10-18] MEDS: AMOXICILLIN/CLAV 875-125MG TABLET PO SCH ×3 (08:55→21:00)
[2017-10-18 13:30] VITALS: BP 126/63
[2017-10-18 18:34] VITALS: BP 146/87
[2017-10-19 00:41] VITALS: BP 147/75
[2017-10-19] MEDS: SODIUM CHLORIDE 0.9% 1,000 ML IV SCH (05:45)
[2017-10-19 06:37] VITALS: BP 163/81
[2017-10-19] MEDS: AMLODIPINE 5 MG TABLET PO SCH (08:03)
[2017-10-19] MEDS: ENOXAPARIN 40 MG/0.4 ML SQ SCH (08:03)
[2017-10-19] MEDS: CIPROFLOXACIN OPHTH SOLN 0.3%, 5ML EACHEYE SCH ×2 (08:04→20:30)
[2017-10-19] MEDS: DOXYCYCLINE 100MG TABLET PO SCH ×2 (08:04→20:29)
[2017-10-19] MEDS: AMOXICILLIN/CLAV 875-125MG TABLET PO SCH ×2 (08:04→20:29)
[2017-10-19 15:44] VITALS: BP 151/68
[2017-10-19 18:36] VITALS: BP 166/76
[2017-10-20 01:54] VITALS: BP 158/81
[2017-10-20 06:32] VITALS: BP 183/106
[2017-10-20 06:45] VITALS: BP 141/80
[2017-10-20] MEDS: DOXYCYCLINE 100MG TABLET PO SCH ×2 (07:45→21:07)
[2017-10-20] MEDS: AMLODIPINE 5 MG TABLET PO SCH (07:46)
[2017-10-20] MEDS: AMOXICILLIN/CLAV 875-125MG TABLET PO SCH ×2 (07:46→21:06)
[2017-10-20] MEDS: ENOXAPARIN 40 MG/0.4 ML SQ SCH (07:46)
[2017-10-20] MEDS: LISINOPRIL 10 MG TABLET PO SCH (07:46)
[2017-10-20] MEDS: CIPROFLOXACIN OPHTH SOLN 0.3%, 5ML EACHEYE SCH ×2 (09:00→21:00)
[2017-10-20 14:25] VITALS: BP 156/75
[2017-10-20 18:46] VITALS: BP 147/72
[2017-10-21 01:51] VITALS: BP 148/84
[2017-10-21 07:01] VITALS: BP 144/73
[2017-10-21] MEDS: LISINOPRIL 10 MG TABLET PO SCH (07:30)
[2017-10-21] MEDS: AMLODIPINE 5 MG TABLET PO SCH (07:30)
[2017-10-21] MEDS: CIPROFLOXACIN OPHTH SOLN 0.3%, 5ML EACHEYE SCH ×2 (07:30→21:00)
[2017-10-21] MEDS: ENOXAPARIN 40 MG/0.4 ML SQ SCH (07:30)
[2017-10-21 14:51] VITALS: BP 158/81
[2017-10-21 19:04] VITALS: BP 150/72
[2017-10-22 01:12] VITALS: BP 144/74
[2017-10-22 07:45] VITALS: BP 164/79
[2017-10-22] MEDS: LISINOPRIL 10 MG TABLET PO SCH (09:26)
[2017-10-22] MEDS: ENOXAPARIN 40 MG/0.4 ML SQ SCH (09:26)
[2017-10-22] MEDS: AMLODIPINE 5 MG TABLET PO SCH (09:26)
[2017-10-22] MEDS: CIPROFLOXACIN OPHTH SOLN 0.3%, 5ML EACHEYE SCH ×2 (09:27→21:46)
[2017-10-22] MEDS: DOXYCYCLINE 100MG TABLET PO SCH ×2 (10:38→21:46)
[2017-10-22] MEDS: AMOXICILLIN/CLAV 875-125MG TABLET PO SCH ×2 (10:38→21:46)
[2017-10-22 14:30] VITALS: BP 128/72
[2017-10-22 20:05] VITALS: BP 153/82
[2017-10-23 02:51] VITALS: BP 152/55
[2017-10-23 06:49] VITALS: BP 136/72
[2017-10-23 09:18] VITALS: BP 145/63
[2017-10-23] MEDS: AMLODIPINE 5 MG TABLET PO SCH (09:20)
[2017-10-23] MEDS: CIPROFLOXACIN OPHTH SOLN 0.3%, 5ML EACHEYE SCH ×2 (09:21→20:00)
[2017-10-23] MEDS: DOXYCYCLINE 100MG TABLET PO SCH (09:21)
[2017-10-23] MEDS: LISINOPRIL 10 MG TABLET PO SCH (09:21)
[2017-10-23] MEDS: AMOXICILLIN/CLAV 875-125MG TABLET PO SCH (09:21)
[2017-10-23] MEDS: ENOXAPARIN 40 MG/0.4 ML SQ SCH (09:51)
[2017-10-23] MEDS: MEROPENEM 1 GM in SODIUM CHLORIDE 0.9% 100 ML IV SCH ×2 (11:44→19:59)
[2017-10-23 12:06] VITALS: BP 156/62
[2017-10-23] MEDS: NS IVPB SCH (13:01)
[2017-10-23] MEDS: LINEZOLID IVPB SCH (13:01)
[2017-10-23 18:52] VITALS: BP 131/73
[2017-10-24] MEDS: NS IVPB SCH ×2 (01:14→13:09)
[2017-10-24] MEDS: LINEZOLID IVPB SCH ×2 (01:14→13:09)
[2017-10-24 01:50] VITALS: BP 132/71
[2017-10-24] MEDS: MEROPENEM 1 GM in SODIUM CHLORIDE 0.9% 100 ML IV SCH ×3 (03:57→20:11)
[2017-10-24 07:44] VITALS: BP 149/87
[2017-10-24] MEDS: ENOXAPARIN 40 MG/0.4 ML SQ SCH (08:46)
[2017-10-24] MEDS: CIPROFLOXACIN OPHTH SOLN 0.3%, 5ML EACHEYE SCH ×2 (08:46→21:00)
[2017-10-24] MEDS: AMLODIPINE 5 MG TABLET PO SCH (08:46)
[2017-10-24] MEDS: LISINOPRIL 10 MG TABLET PO SCH (08:46)
[2017-10-24 13:48] VITALS: BP 139/69
[2017-10-24 20:13] VITALS: BP 125/71
[2017-10-25] MEDS: LINEZOLID IVPB SCH ×2 (00:59→13:11)
[2017-10-25] MEDS: NS IVPB SCH ×2 (00:59→13:11)
[2017-10-25 03:00] VITALS: BP 125/69
[2017-10-25] MEDS: MEROPENEM 1 GM in SODIUM CHLORIDE 0.9% 100 ML IV SCH ×3 (04:03→19:36)
[2017-10-25 05:09] VITALS: BP 124/67
[2017-10-25 06:56] VITALS: BP 130/62
[2017-10-25] MEDS: AMLODIPINE 5 MG TABLET PO SCH (09:19)
[2017-10-25] MEDS: LISINOPRIL 10 MG TABLET PO SCH (09:19)
[2017-10-25] MEDS: ENOXAPARIN 40 MG/0.4 ML SQ SCH (09:19)
[2017-10-25] MEDS: CIPROFLOXACIN OPHTH SOLN 0.3%, 5ML EACHEYE SCH ×2 (09:23→19:37)
[2017-10-25 12:02] VITALS: BP 124/76
[2017-10-25 19:59] VITALS: BP 116/68
[2017-10-26] MEDS: NS IVPB SCH ×2 (00:47→13:46)
[2017-10-26] MEDS: LINEZOLID IVPB SCH ×2 (00:47→13:46)
[2017-10-26 01:30] VITALS: BP 118/69
[2017-10-26] MEDS: MEROPENEM 1 GM in SODIUM CHLORIDE 0.9% 100 ML IV SCH ×3 (04:31→20:34)
[2017-10-26 05:21] LABS: CREATININE 0.49 mg/dL (0.7-1.3)
[2017-10-26 08:12] VITALS: BP 122/74
[2017-10-26] MEDS: CIPROFLOXACIN OPHTH SOLN 0.3%, 5ML EACHEYE SCH ×2 (09:00→20:34)
[2017-10-26] MEDS: AMLODIPINE 5 MG TABLET PO SCH (11:29)
[2017-10-26] MEDS: ENOXAPARIN 40 MG/0.4 ML SQ SCH (11:29)
[2017-10-26] MEDS: LISINOPRIL 10 MG TABLET PO SCH (11:29)
[2017-10-26 14:56] VITALS: BP 121/72
[2017-10-26 18:58] VITALS: BP 126/70
[2017-10-27] MEDS: NS IVPB SCH ×2 (01:08→12:37)
[2017-10-27] MEDS: LINEZOLID IVPB SCH ×2 (01:08→12:37)
[2017-10-27 01:42] VITALS: BP 120/77
[2017-10-27] MEDS: MEROPENEM 1 GM in SODIUM CHLORIDE 0.9% 100 ML IV SCH ×3 (04:02→19:49)
[2017-10-27 07:27] VITALS: BP 138/72
[2017-10-27] MEDS: LISINOPRIL 10 MG TABLET PO SCH (08:38)
[2017-10-27] MEDS: AMLODIPINE 5 MG TABLET PO SCH (08:38)
[2017-10-27] MEDS: CIPROFLOXACIN OPHTH SOLN 0.3%, 5ML EACHEYE SCH ×2 (08:38→21:00)
[2017-10-27] MEDS: ENOXAPARIN 40 MG/0.4 ML SQ SCH (08:41)
[2017-10-27 15:02] VITALS: BP 130/65
[2017-10-27 19:09] VITALS: BP 135/74
[2017-10-28 01:23] VITALS: BP 133/70
[2017-10-28] MEDS: NS IVPB SCH ×2 (01:29→12:41)
[2017-10-28] MEDS: LINEZOLID IVPB SCH ×2 (01:29→12:41)
[2017-10-28] MEDS: MEROPENEM 1 GM in SODIUM CHLORIDE 0.9% 100 ML IV SCH ×3 (03:44→19:41)
[2017-10-28 07:09] VITALS: BP 150/68
[2017-10-28] MEDS: ENOXAPARIN 40 MG/0.4 ML SQ SCH (07:56)
[2017-10-28] MEDS: LISINOPRIL 10 MG TABLET PO SCH ×3 (07:57→20:51)
[2017-10-28] MEDS: CIPROFLOXACIN OPHTH SOLN 0.3%, 5ML EACHEYE SCH ×2 (07:57→20:51)
[2017-10-28] MEDS: AMLODIPINE 5 MG TABLET PO SCH (09:04)
[2017-10-28] MEDS: ONDANSETRON 2MG/ML, 2ML IVPush PRN (09:04)
[2017-10-28 13:14] VITALS: BP 142/83
[2017-10-28 19:04] VITALS: BP 136/63
[2017-10-29] MEDS: NS IVPB SCH ×3 (00:20→12:42)
[2017-10-29] MEDS: LINEZOLID IVPB SCH ×3 (00:20→12:42)
[2017-10-29 01:20] VITALS: BP 140/66
[2017-10-29] MEDS: MEROPENEM 1 GM in SODIUM CHLORIDE 0.9% 100 ML IV SCH ×3 (03:07→19:44)
[2017-10-29 06:37] VITALS: BP 121/70
[2017-10-29] MEDS: AMLODIPINE 5 MG TABLET PO SCH (08:33)
[2017-10-29] MEDS: CIPROFLOXACIN OPHTH SOLN 0.3%, 5ML EACHEYE SCH ×2 (08:33→19:45)
[2017-10-29] MEDS: ENOXAPARIN 40 MG/0.4 ML SQ SCH (08:34)
[2017-10-29] MEDS: LISINOPRIL 10 MG TABLET PO SCH ×2 (08:34→19:45)
[2017-10-29 12:26] VITALS: BP 134/61
[2017-10-29 18:46] VITALS: BP 134/73
[2017-10-30] MEDS: NS IVPB SCH ×2 (00:54→13:21)
[2017-10-30] MEDS: LINEZOLID IVPB SCH ×2 (00:54→13:21)
[2017-10-30 02:09] VITALS: BP 150/74
[2017-10-30] MEDS: MEROPENEM 1 GM in SODIUM CHLORIDE 0.9% 100 ML IV SCH ×3 (03:50→19:32)
[2017-10-30 06:53] VITALS: BP 103/59
[2017-10-30] MEDS: ENOXAPARIN 40 MG/0.4 ML SQ SCH (09:33)
[2017-10-30] MEDS: LISINOPRIL 10 MG TABLET PO SCH (09:33)
[2017-10-30] MEDS: AMLODIPINE 5 MG TABLET PO SCH (09:33)
[2017-10-30] MEDS: CIPROFLOXACIN OPHTH SOLN 0.3%, 5ML EACHEYE SCH ×2 (09:35→19:32)
[2017-10-30 12:38] VITALS: BP 144/77
[2017-10-30] MEDS: METOPROLOL TARTRATE 25 MG TABLET PO SCH (17:48)
[2017-10-30] MEDS: LISINOPRIL 20 MG TABLET PO SCH (19:32)
[2017-10-30 19:58] VITALS: BP 148/75
[2017-10-31 01:22] VITALS: BP 145/75
[2017-10-31] MEDS: LINEZOLID IVPB SCH ×2 (01:35→12:45)
[2017-10-31] MEDS: NS IVPB SCH ×2 (01:35→12:45)
[2017-10-31] MEDS: MEROPENEM 1 GM in SODIUM CHLORIDE 0.9% 100 ML IV SCH ×3 (03:49→20:00)
[2017-10-31] MEDS: METOPROLOL TARTRATE 25 MG TABLET PO SCH ×2 (05:14→18:14)
[2017-10-31 09:01] VITALS: BP 126/68
[2017-10-31] MEDS: AMLODIPINE 5 MG TABLET PO SCH (09:08)
[2017-10-31] MEDS: LISINOPRIL 20 MG TABLET PO SCH ×2 (09:08→19:59)
[2017-10-31] MEDS: ENOXAPARIN 40 MG/0.4 ML SQ SCH (09:09)
[2017-10-31] MEDS: CIPROFLOXACIN OPHTH SOLN 0.3%, 5ML EACHEYE SCH ×2 (09:09→20:00)
[2017-10-31 12:35] VITALS: BP 151/81
[2017-10-31 19:47] VITALS: BP 124/53
[2017-11-01] MEDS: NS IVPB SCH ×2 (00:38→13:03)
[2017-11-01] MEDS: LINEZOLID IVPB SCH ×2 (00:38→13:03)
[2017-11-01 02:02] VITALS: BP 155/71
[2017-11-01] MEDS: MEROPENEM 1 GM in SODIUM CHLORIDE 0.9% 100 ML IV SCH ×3 (03:44→19:55)
[2017-11-01] MEDS: ONDANSETRON 2MG/ML, 2ML IVPush PRN ×2 (05:44→20:56)
[2017-11-01] MEDS: METOPROLOL TARTRATE 25 MG TABLET PO SCH ×2 (06:12→18:30)
[2017-11-01 08:45] VITALS: BP 120/78
[2017-11-01] MEDS: AMLODIPINE 5 MG TABLET PO SCH (10:03)
[2017-11-01] MEDS: ENOXAPARIN 40 MG/0.4 ML SQ SCH (10:04)
[2017-11-01] MEDS: CIPROFLOXACIN OPHTH SOLN 0.3%, 5ML EACHEYE SCH ×2 (10:04→20:57)
[2017-11-01] MEDS: LISINOPRIL 20 MG TABLET PO SCH ×2 (10:04→20:56)
[2017-11-01 13:31] VITALS: BP 118/75
[2017-11-01 18:42] VITALS: BP 128/77
[2017-11-02 00:44] VITALS: BP 104/63
[2017-11-02] MEDS: LINEZOLID IVPB SCH ×2 (00:54→13:50)
[2017-11-02] MEDS: NS IVPB SCH ×2 (00:54→13:50)
[2017-11-02] MEDS: MEROPENEM 1 GM in SODIUM CHLORIDE 0.9% 100 ML IV SCH ×2 (03:29→11:16)
[2017-11-02 05:18] LABS: CREATININE 0.42 mg/dL (0.7-1.3)
[2017-11-02] MEDS: METOPROLOL TARTRATE 25 MG TABLET PO SCH ×2 (05:55→18:29)
[2017-11-02 06:55] VITALS: BP 110/62
[2017-11-02] MEDS: ENOXAPARIN 40 MG/0.4 ML SQ SCH (11:16)
[2017-11-02] MEDS: AMLODIPINE 5 MG TABLET PO SCH (11:16)
[2017-11-02] MEDS: LISINOPRIL 20 MG TABLET PO SCH ×2 (11:16→20:05)
[2017-11-02] MEDS: CIPROFLOXACIN OPHTH SOLN 0.3%, 5ML EACHEYE SCH ×2 (11:16→20:05)
[2017-11-02 13:50] VITALS: BP 119/71
[2017-11-02 18:42] VITALS: BP 112/70
[2017-11-03 01:02] VITALS: BP 121/65
[2017-11-03] MEDS: METOPROLOL TARTRATE 25 MG TABLET PO SCH ×2 (06:27→17:07)
[2017-11-03 06:50] VITALS: BP 137/80
[2017-11-03] MEDS: AMLODIPINE 5 MG TABLET PO SCH (09:41)
[2017-11-03] MEDS: LISINOPRIL 20 MG TABLET PO SCH ×2 (09:41→21:14)
[2017-11-03] MEDS: CIPROFLOXACIN OPHTH SOLN 0.3%, 5ML EACHEYE SCH ×2 (09:42→21:13)
[2017-11-03] MEDS: ENOXAPARIN 40 MG/0.4 ML SQ SCH (09:42)
[2017-11-03 12:30] VITALS: BP 125/64
[2017-11-03 17:06] VITALS: BP 151/68
[2017-11-03 19:55] VITALS: BP 122/72
[2017-11-04 01:04] VITALS: BP 140/73
[2017-11-04] MEDS: METOPROLOL TARTRATE 25 MG TABLET PO SCH ×2 (05:35→18:12)
[2017-11-04 07:41] VITALS: BP 122/66
[2017-11-04] MEDS: AMLODIPINE 5 MG TABLET PO SCH (10:42)
[2017-11-04] MEDS: ENOXAPARIN 40 MG/0.4 ML SQ SCH (10:42)
[2017-11-04] MEDS: CIPROFLOXACIN OPHTH SOLN 0.3%, 5ML EACHEYE SCH ×2 (10:42→20:54)
[2017-11-04] MEDS: LISINOPRIL 20 MG TABLET PO SCH ×2 (10:42→20:55)
[2017-11-04 12:33] VITALS: BP 124/73
[2017-11-04 19:15] VITALS: BP 115/65
[2017-11-05 01:03] VITALS: BP 128/66
[2017-11-05 05:12] LABS: CREATININE 0.47 mg/dL (0.7-1.3)
[2017-11-05] MEDS: METOPROLOL TARTRATE 25 MG TABLET PO SCH ×2 (06:30→18:42)
[2017-11-05 07:08] VITALS: BP 124/72
[2017-11-05] MEDS: ENOXAPARIN 40 MG/0.4 ML SQ SCH (09:44)
[2017-11-05] MEDS: LISINOPRIL 20 MG TABLET PO SCH ×2 (09:44→21:44)
[2017-11-05] MEDS: AMLODIPINE 5 MG TABLET PO SCH (09:44)
[2017-11-05] MEDS: CIPROFLOXACIN OPHTH SOLN 0.3%, 5ML EACHEYE SCH ×2 (09:53→21:44)
[2017-11-05 12:36] VITALS: BP 120/57
[2017-11-05 18:39] VITALS: BP 118/62
[2017-11-05 18:54] VITALS: BP 108/56
[2017-11-06] VITALS (7 sets, daily range): BP systolic 129–138; BP diastolic 66–83
[2017-11-06] MEDS: METOPROLOL TARTRATE 25 MG TABLET PO SCH ×2 (05:34→17:58)
[2017-11-06] MEDS: ENOXAPARIN 40 MG/0.4 ML SQ SCH (08:54)
[2017-11-06] MEDS: LISINOPRIL 20 MG TABLET PO SCH ×2 (08:55→21:00)
[2017-11-06] MEDS: CIPROFLOXACIN OPHTH SOLN 0.3%, 5ML EACHEYE SCH ×2 (08:55→22:40)
[2017-11-06] MEDS: AMLODIPINE 5 MG TABLET PO SCH (08:55)
[2017-11-06] MEDS: SODIUM CHLORIDE 0.9% 1,000 ML IV SCH ×2 (14:46→23:11)
[2017-11-06 15:07] LABS: BASOPHILS # (AUTO) 0.02 x10^3/uL (0-0.1); BASOPHILS % (AUTO) 0 % (0-1); EOSINOPHILS # (AUTO) 0.08 x10^3/uL (0-0.4); EOSINOPHILS % (AUTO) 1 % (1-7); LYMPHOCYTES # (AUTO) 1.29 x10^3/uL (1-3.4); LYMPHOCYTES % (AUTO) 17 % (22-44); MD NO; MEAN CORPUSCULAR HEMOGLOBIN 31.5 pg (27.5-34.5); MEAN CORPUSCULAR VOLUME 95.3 fL (81-97); MEAN PLATELET VOLUME 7.5 fL (7.4-10.4); MONOCYTES # (AUTO) 0.67 x10^3/uL (0.2-0.8); MONOCYTES % (AUTO) 9 % (2-9); NEUTROPHILS # (AUTO) 5.46 x10^3/uL (1.8-6.8); NEUTROPHILS % (AUTO) 73 % (42-75); PLATELET COUNT 203 x10^3/uL (130-400); RED BLOOD COUNT 2.73 x10^6/uL (4.38-5.82)
[2017-11-06 15:15] LABS: ALANINE AMINOTRANSFERASE 41 U/L (12-78); ALBUMIN 2.4 g/dL (3.4-5.0); ANION GAP 4 mmol/L (5-15); CALCIUM 8.7 mg/dL (8.5-10.1); CHLORIDE 108 mmol/L (98-107); CREATININE 0.44 mg/dL (0.7-1.3)
[2017-11-06 15:17] LABS: ALKALINE PHOSPHATASE 76 U/L (45-117); BILIRUBIN,TOTAL 0.2 mg/dL (0.2-1.0); TOTAL PROTEIN 6.3 g/dL (6.4-8.2)
[2017-11-06] MEDS: DIPHENHYDRAMINE 50 MG/ML, 1ML IVPush SCH ×2 (15:39→22:38)
[2017-11-06] MEDS ORDERED: DIPHENHYDRAMINE 50 MG/ML, 1ML IVPush SCH (16:00)
[2017-11-07 00:49] VITALS: BP 122/66
[2017-11-07] MEDS: METOPROLOL TARTRATE 25 MG TABLET PO SCH ×2 (05:51→19:14)
[2017-11-07 06:50] VITALS: BP 139/86
[2017-11-07] MEDS: LISINOPRIL 20 MG TABLET PO SCH ×2 (09:00→20:14)
[2017-11-07] MEDS: CIPROFLOXACIN OPHTH SOLN 0.3%, 5ML EACHEYE SCH ×2 (09:08→20:15)
[2017-11-07] MEDS: DIPHENHYDRAMINE 50 MG/ML, 1ML IVPush SCH ×2 (09:08→19:14)
[2017-11-07] MEDS: AMLODIPINE 5 MG TABLET PO SCH (09:09)
[2017-11-07] MEDS: ENOXAPARIN 40 MG/0.4 ML SQ SCH (09:09)
[2017-11-07] MEDS: SODIUM CHLORIDE 0.9% 1,000 ML IV SCH ×2 (09:10→19:14)
[2017-11-07 12:54] VITALS: BP 142/76
[2017-11-07 19:34] VITALS: BP 138/77
[2017-11-08 01:16] VITALS: BP 154/74
[2017-11-08] MEDS: DIPHENHYDRAMINE 50 MG/ML, 1ML IVPush SCH ×3 (03:45→21:17)
[2017-11-08] MEDS: SODIUM CHLORIDE 0.9% 1,000 ML IV SCH (05:18)
[2017-11-08] MEDS: METOPROLOL TARTRATE 25 MG TABLET PO SCH ×2 (05:19→17:53)
[2017-11-08 05:59] LABS: CREATININE 0.34 mg/dL (0.7-1.3)
[2017-11-08 07:11] VITALS: BP 151/80
[2017-11-08] MEDS: CIPROFLOXACIN OPHTH SOLN 0.3%, 5ML EACHEYE SCH ×2 (09:00→21:00)
[2017-11-08] MEDS: AMLODIPINE 5 MG TABLET PO SCH (09:00)
[2017-11-08] MEDS: LISINOPRIL 20 MG TABLET PO SCH ×2 (09:49→21:17)
[2017-11-08] MEDS: ENOXAPARIN 40 MG/0.4 ML SQ SCH (09:50)
[2017-11-08 14:15] VITALS: BP 131/77
[2017-11-08 19:33] VITALS: BP 135/79
[2017-11-08] MEDS: OFLOXACIN OPHTH 0.3%, 5ML EACHEYE SCH (21:00)
[2017-11-09 00:54] VITALS: BP 145/81
[2017-11-09 05:12] LABS: BASOPHILS # (AUTO) 0.03 x10^3/uL (0-0.1); BASOPHILS % (AUTO) 0 % (0-1); EOSINOPHILS # (AUTO) 0.35 x10^3/uL (0-0.4); EOSINOPHILS % (AUTO) 5 % (1-7); LYMPHOCYTES # (AUTO) 1.36 x10^3/uL (1-3.4); LYMPHOCYTES % (AUTO) 21 % (22-44); MD NO; MEAN CORPUSCULAR HEMOGLOBIN 32.5 pg (27.5-34.5); MEAN CORPUSCULAR HGB CONC 33.8 g/dL (33.2-36.2); MEAN CORPUSCULAR VOLUME 96.3 fL (81-97); MONOCYTES % (AUTO) 8 % (2-9); NEUTROPHILS # (AUTO) 4.17 x10^3/uL (1.8-6.8); NEUTROPHILS % (AUTO) 65 % (42-75); PLATELET COUNT 242 x10^3/uL (130-400); RED BLOOD COUNT 2.61 x10^6/uL (4.38-5.82); RED CELL DISTRIBUTION WIDTH 19.2 % (9.4-14.8)
[2017-11-09 05:16] LABS: CALCIUM 8.8 mg/dL (8.5-10.1); CHLORIDE 113 mmol/L (98-107)
[2017-11-09] MEDS: DIPHENHYDRAMINE 50 MG/ML, 1ML IVPush SCH (05:16)
[2017-11-09 05:20] LABS: ANION GAP 6 mmol/L (5-15); CREATININE 0.43 mg/dL (0.7-1.3)
[2017-11-09] MEDS: METOPROLOL TARTRATE 25 MG TABLET PO SCH ×2 (06:00→18:34)
[2017-11-09 06:48] VITALS: BP 147/73
[2017-11-09] MEDS: AMLODIPINE 5 MG TABLET PO SCH ×2 (09:31→09:36)
[2017-11-09] MEDS: OFLOXACIN OPHTH 0.3%, 5ML EACHEYE SCH ×2 (09:31→21:54)
[2017-11-09] MEDS: ENOXAPARIN 40 MG/0.4 ML SQ SCH (09:32)
[2017-11-09] MEDS: LISINOPRIL 20 MG TABLET PO SCH ×3 (09:32→21:54)
[2017-11-09] MEDS ORDERED: DIPHENHYDRAMINE 25 MG CAPSULE PO PRN (11:30)
[2017-11-09 13:33] VITALS: BP 143/82
[2017-11-09 18:33] VITALS: BP 143/82
[2017-11-09 19:49] VITALS: BP 158/77
[2017-11-10 03:08] VITALS: BP 149/74
[2017-11-10] MEDS: METOPROLOL TARTRATE 25 MG TABLET PO SCH ×2 (06:14→17:58)
[2017-11-10 07:47] VITALS: BP 135/70
[2017-11-10] MEDS: AMLODIPINE 5 MG TABLET PO SCH (09:54)
[2017-11-10] MEDS: LISINOPRIL 20 MG TABLET PO SCH ×2 (09:55→20:54)
[2017-11-10] MEDS: ENOXAPARIN 40 MG/0.4 ML SQ SCH (09:55)
[2017-11-10] MEDS: OFLOXACIN OPHTH 0.3%, 5ML EACHEYE SCH ×2 (10:00→20:54)
[2017-11-10 14:36] VITALS: BP 102/63
[2017-11-10 17:21] LABS: MICROSCOPIC INDICATED
[2017-11-10 17:22] LABS: CULTURE INDICATED? YES
[2017-11-10 17:57] VITALS: BP 136/74
[2017-11-10 20:23] VITALS: BP 146/73
[2017-11-11] MEDS: MUPIROCIN OINT 2%, 22GM TP SCH ×2 (02:45→17:31)
[2017-11-11 02:47] VITALS: BP 138/77
[2017-11-11] MEDS: METOPROLOL TARTRATE 25 MG TABLET PO SCH ×2 (05:48→17:31)
[2017-11-11 07:30] VITALS: BP 137/84
[2017-11-11] MEDS: ENOXAPARIN 40 MG/0.4 ML SQ SCH (09:30)
[2017-11-11] MEDS: LISINOPRIL 20 MG TABLET PO SCH ×2 (11:11→21:00)
[2017-11-11] MEDS: AMLODIPINE 5 MG TABLET PO SCH (11:12)
[2017-11-11] MEDS: OFLOXACIN OPHTH 0.3%, 5ML EACHEYE SCH ×2 (11:14→21:00)
[2017-11-11 13:50] VITALS: BP 136/71
[2017-11-11] MEDS: DOCUSATE 50 MG/5 ML, 10ML UDC PO PRN (17:31)
[2017-11-11 19:24] VITALS: BP 93/53
[2017-11-12 01:33] VITALS: BP 142/76
[2017-11-12] MEDS: MUPIROCIN OINT 2%, 22GM TP SCH ×2 (06:00→20:05)
[2017-11-12 07:49] VITALS: BP 110/61
[2017-11-12] MEDS: AMLODIPINE 5 MG TABLET PO SCH (10:58)
[2017-11-12] MEDS: LISINOPRIL 20 MG TABLET PO SCH ×2 (10:58→20:05)
[2017-11-12] MEDS: METOPROLOL TARTRATE 25 MG TABLET PO SCH ×2 (10:58→18:46)
[2017-11-12] MEDS: ENOXAPARIN 40 MG/0.4 ML SQ SCH (10:59)
[2017-11-12] MEDS: OFLOXACIN OPHTH 0.3%, 5ML EACHEYE SCH ×2 (10:59→20:05)
[2017-11-12 12:57] VITALS: BP 131/78
[2017-11-12] MEDS: DOCUSATE 50 MG/5 ML, 10ML UDC PO PRN (19:19)
[2017-11-12 19:44] VITALS: BP 138/72
[2017-11-13 00:31] VITALS: BP 144/74
[2017-11-13] MEDS: DOCUSATE 50 MG/5 ML, 10ML UDC PO PRN (06:08)
[2017-11-13] MEDS: MUPIROCIN OINT 2%, 22GM TP SCH ×2 (06:08→17:59)
[2017-11-13] MEDS: METOPROLOL TARTRATE 25 MG TABLET PO SCH ×2 (06:09→17:54)
[2017-11-13 06:40] VITALS: BP 132/66
[2017-11-13] MEDS ORDERED: POLYETHYLENE GLYCOL 17 GM PACKET ONE (10:55)
[2017-11-13] MEDS ORDERED: POLYETHYLENE GLYCOL 17 GM PACKET NG PRN (11:00)
[2017-11-13] MEDS: ENOXAPARIN 40 MG/0.4 ML SQ SCH (11:01)
[2017-11-13] MEDS: LISINOPRIL 20 MG TABLET PO SCH ×2 (11:02→21:23)
[2017-11-13] MEDS: AMLODIPINE 5 MG TABLET PO SCH (11:02)
[2017-11-13] MEDS: OFLOXACIN OPHTH 0.3%, 5ML EACHEYE SCH ×2 (11:12→21:23)
[2017-11-13 15:00] VITALS: BP 145/71
[2017-11-13] MEDS ORDERED: BISACODYL 10 MG SUPP ONE (17:16)
[2017-11-13] MEDS: BISACODYL 10 MG SUPP PR PRN (17:54)
[2017-11-13 19:45] VITALS: BP 117/59
[2017-11-14 01:36] VITALS: BP 121/78
[2017-11-14] MEDS: METOPROLOL TARTRATE 25 MG TABLET PO SCH ×2 (05:59→18:28)
[2017-11-14] MEDS: MUPIROCIN OINT 2%, 22GM TP SCH ×2 (05:59→18:28)
[2017-11-14 07:16] VITALS: BP 106/54
[2017-11-14] MEDS: LISINOPRIL 20 MG TABLET PO SCH ×2 (09:45→21:56)
[2017-11-14] MEDS: ENOXAPARIN 40 MG/0.4 ML SQ SCH (09:45)
[2017-11-14] MEDS: AMLODIPINE 5 MG TABLET PO SCH (09:45)
[2017-11-14] MEDS: OFLOXACIN OPHTH 0.3%, 5ML EACHEYE SCH ×2 (09:46→21:56)
[2017-11-14 15:28] VITALS: BP 134/75
[2017-11-14 19:58] VITALS: BP 105/53
[2017-11-15 02:20] VITALS: BP 127/74
[2017-11-15 05:45] LABS: CREATININE 0.43 mg/dL (0.7-1.3)
[2017-11-15] MEDS: METOPROLOL TARTRATE 25 MG TABLET PO SCH ×2 (05:55→18:35)
[2017-11-15] MEDS: MUPIROCIN OINT 2%, 22GM TP SCH ×2 (05:55→18:35)
[2017-11-15 07:27] VITALS: BP 122/70
[2017-11-15] MEDS: DOCUSATE 50 MG/5 ML, 10ML UDC PO PRN (09:04)
[2017-11-15] MEDS: LISINOPRIL 20 MG TABLET PO SCH ×2 (09:04→21:23)
[2017-11-15] MEDS: AMLODIPINE 5 MG TABLET PO SCH (09:04)
[2017-11-15] MEDS: ENOXAPARIN 40 MG/0.4 ML SQ SCH (09:04)
[2017-11-15] MEDS: OFLOXACIN OPHTH 0.3%, 5ML EACHEYE SCH ×2 (09:04→21:23)
[2017-11-15 12:41] VITALS: BP 100/63
[2017-11-15 19:00] VITALS: BP 121/74
[2017-11-16 01:06] VITALS: BP 129/72
[2017-11-16 05:50] VITALS: BP 99/65
[2017-11-16] MEDS: MUPIROCIN OINT 2%, 22GM TP SCH ×2 (05:52→17:38)
[2017-11-16] MEDS: METOPROLOL TARTRATE 25 MG TABLET PO SCH ×2 (05:52→17:38)
[2017-11-16 07:00] VITALS: BP 130/70
[2017-11-16] MEDS: AMLODIPINE 5 MG TABLET PO SCH (09:23)
[2017-11-16] MEDS: LISINOPRIL 20 MG TABLET PO SCH ×2 (09:23→21:45)
[2017-11-16] MEDS: ENOXAPARIN 40 MG/0.4 ML SQ SCH (09:24)
[2017-11-16] MEDS: OFLOXACIN OPHTH 0.3%, 5ML EACHEYE SCH ×2 (09:24→21:45)
[2017-11-16 12:39] VITALS: BP 102/57
[2017-11-16 18:56] VITALS: BP 129/66
[2017-11-17 01:03] VITALS: BP 131/64
[2017-11-17 05:39] LABS: ALBUMIN 2.3 g/dL (3.4-5.0); ANION GAP 6 mmol/L (5-15); CALCIUM 8.8 mg/dL (8.5-10.1); CHLORIDE 109 mmol/L (98-107)
[2017-11-17 05:41] LABS: CREATININE 0.47 mg/dL (0.7-1.3)
[2017-11-17] MEDS: MUPIROCIN OINT 2%, 22GM TP SCH ×2 (05:58→18:27)
[2017-11-17] MEDS: METOPROLOL TARTRATE 25 MG TABLET PO SCH ×2 (05:58→18:27)
[2017-11-17 07:25] VITALS: BP 118/69
[2017-11-17] MEDS: LISINOPRIL 20 MG TABLET PO SCH ×2 (10:45→21:14)
[2017-11-17] MEDS: OFLOXACIN OPHTH 0.3%, 5ML EACHEYE SCH ×2 (10:45→21:14)
[2017-11-17] MEDS: AMLODIPINE 5 MG TABLET PO SCH (10:45)
[2017-11-17] MEDS: ENOXAPARIN 40 MG/0.4 ML SQ SCH (10:46)
[2017-11-17 12:30] VITALS: BP 139/73
[2017-11-17 19:13] VITALS: BP 149/83
[2017-11-18 01:13] VITALS: BP 135/73
[2017-11-18] MEDS: METOPROLOL TARTRATE 25 MG TABLET PO SCH ×2 (05:27→17:29)
[2017-11-18] MEDS: MUPIROCIN OINT 2%, 22GM TP SCH ×2 (05:27→17:58)
[2017-11-18] MEDS: DOCUSATE 50 MG/5 ML, 10ML UDC PO PRN ×2 (05:27→17:28)
[2017-11-18 06:16] LABS: ANION GAP 8 mmol/L (5-15); CALCIUM 9.1 mg/dL (8.5-10.1); CHLORIDE 109 mmol/L (98-107)
[2017-11-18 06:17] LABS: CREATININE 0.54 mg/dL (0.7-1.3)
[2017-11-18 06:31] LABS: MEAN CORPUSCULAR HGB CONC 32.4 g/dL (33.2-36.2); MEAN CORPUSCULAR VOLUME 95.7 fL (81-97); MEAN PLATELET VOLUME 8.5 fL (7.4-10.4); PLATELET COUNT 411 x10^3/uL (130-400); RED BLOOD COUNT 3.24 x10^6/uL (4.38-5.82)
[2017-11-18 06:56] LABS: BASOPHILS # (AUTO) 0.04 x10^3/uL (0-0.1); BASOPHILS % (AUTO) 1 % (0-1); EOSINOPHILS # (AUTO) 0.28 x10^3/uL (0-0.4); EOSINOPHILS % (AUTO) 4 % (1-7); LYMPHOCYTES # (AUTO) 1.51 x10^3/uL (1-3.4); LYMPHOCYTES % (AUTO) 19 % (22-44); MD MORPH REVIEW ONLY; MONOCYTES # (AUTO) 0.51 x10^3/uL (0.2-0.8); MONOCYTES % (AUTO) 6 % (2-9); NEUTROPHILS # (AUTO) 5.53 x10^3/uL (1.8-6.8); NEUTROPHILS % (AUTO) 70 % (42-75)
[2017-11-18 06:58] LABS: <PLATELET ESTIMATE> INCREASED; <PLT MORPHOLOGY> NORMAL PLT MORPH; ANISOCYTOSIS 1+; MICROCYTOSIS 1+
[2017-11-18 07:40] VITALS: BP 128/69
[2017-11-18] MEDS: MULTIVITAMINS/MINERALS TABLET PO SCH (08:57)
[2017-11-18] MEDS: LISINOPRIL 20 MG TABLET PO SCH ×2 (08:57→21:04)
[2017-11-18] MEDS: OFLOXACIN OPHTH 0.3%, 5ML EACHEYE SCH ×2 (08:57→21:04)
[2017-11-18] MEDS: ENOXAPARIN 40 MG/0.4 ML SQ SCH (08:58)
[2017-11-18] MEDS: AMLODIPINE 5 MG TABLET PO SCH (08:58)
[2017-11-18 13:45] VITALS: BP 117/72
[2017-11-18 19:44] VITALS: BP 122/73
[2017-11-19 01:15] VITALS: BP 128/77
[2017-11-19] MEDS: MUPIROCIN OINT 2%, 22GM TP SCH ×2 (05:44→18:00)
[2017-11-19] MEDS: METOPROLOL TARTRATE 25 MG TABLET PO SCH ×2 (05:48→18:19)
[2017-11-19 07:45] VITALS: BP 115/55
[2017-11-19 08:16] VITALS: BP 110/62
[2017-11-19] MEDS: MULTIVITAMINS/MINERALS TABLET PO SCH (08:19)
[2017-11-19] MEDS: OFLOXACIN OPHTH 0.3%, 5ML EACHEYE SCH ×2 (08:19→20:51)
[2017-11-19] MEDS: LISINOPRIL 20 MG TABLET PO SCH ×2 (08:24→20:51)
[2017-11-19] MEDS: AMLODIPINE 5 MG TABLET PO SCH (08:25)
[2017-11-19] MEDS: ENOXAPARIN 40 MG/0.4 ML SQ SCH (08:28)
[2017-11-19 13:45] VITALS: BP 104/62
[2017-11-19 19:53] VITALS: BP 132/72
[2017-11-20 02:07] VITALS: BP 126/73
[2017-11-20] MEDS: METOPROLOL TARTRATE 25 MG TABLET PO SCH ×2 (06:22→18:10)
[2017-11-20] MEDS: MUPIROCIN OINT 2%, 22GM TP SCH ×2 (06:22→18:11)
[2017-11-20 07:00] VITALS: BP 110/73
[2017-11-20] MEDS: MULTIVITAMINS/MINERALS TABLET PO SCH (09:13)
[2017-11-20] MEDS: ENOXAPARIN 40 MG/0.4 ML SQ SCH (09:13)
[2017-11-20] MEDS: OFLOXACIN OPHTH 0.3%, 5ML EACHEYE SCH ×2 (09:14→20:02)
[2017-11-20] MEDS: AMLODIPINE 5 MG TABLET PO SCH (09:14)
[2017-11-20] MEDS: LISINOPRIL 20 MG TABLET PO SCH ×2 (09:14→20:02)
[2017-11-20 09:18] VITALS: BP 123/70
[2017-11-20 14:24] VITALS: BP 116/68
[2017-11-20] MEDS: BISACODYL 10 MG SUPP PR PRN (18:10)
[2017-11-20 18:48] VITALS: BP 106/58
[2017-11-21 01:51] VITALS: BP 114/71
[2017-11-21] MEDS: METOPROLOL TARTRATE 25 MG TABLET PO SCH ×2 (05:11→18:00)
[2017-11-21] MEDS: MUPIROCIN OINT 2%, 22GM TP SCH ×2 (05:12→19:00)
[2017-11-21 06:11] LABS: ANION GAP 10 mmol/L (5-15); CALCIUM 9.6 mg/dL (8.5-10.1); CHLORIDE 112 mmol/L (98-107); CREATININE 0.58 mg/dL (0.7-1.3)
[2017-11-21 09:53] VITALS: BP 112/72
[2017-11-21] MEDS: LISINOPRIL 20 MG TABLET PO SCH ×2 (10:31→19:37)
[2017-11-21] MEDS: MULTIVITAMINS/MINERALS TABLET PO SCH (10:31)
[2017-11-21] MEDS: AMLODIPINE 5 MG TABLET PO SCH (10:32)
[2017-11-21] MEDS: ENOXAPARIN 40 MG/0.4 ML SQ SCH (10:32)
[2017-11-21] MEDS: OFLOXACIN OPHTH 0.3%, 5ML EACHEYE SCH ×2 (10:32→19:37)
[2017-11-21 15:16] VITALS: BP 100/61
[2017-11-21 20:01] VITALS: BP 109/67
[2017-11-22 02:24] VITALS: BP 104/65
[2017-11-22] MEDS: MUPIROCIN OINT 2%, 22GM TP SCH ×2 (05:33→18:00)
[2017-11-22] MEDS: METOPROLOL TARTRATE 25 MG TABLET PO SCH ×2 (05:33→18:00)
[2017-11-22 08:00] VITALS: BP 130/70
[2017-11-22] MEDS: MULTIVITAMINS/MINERALS TABLET PO SCH (09:15)
[2017-11-22] MEDS: OFLOXACIN OPHTH 0.3%, 5ML EACHEYE SCH ×2 (09:15→19:09)
[2017-11-22] MEDS: ENOXAPARIN 40 MG/0.4 ML SQ SCH (09:16)
[2017-11-22] MEDS: AMLODIPINE 5 MG TABLET PO SCH (09:16)
[2017-11-22] MEDS: LISINOPRIL 20 MG TABLET PO SCH ×2 (09:16→19:09)
[2017-11-22 14:00] VITALS: BP 126/82
[2017-11-22 19:07] VITALS: BP 131/74
[2017-11-23 01:45] VITALS: BP 107/62
[2017-11-23] MEDS: METOPROLOL TARTRATE 25 MG TABLET PO SCH ×2 (05:49→18:06)
[2017-11-23] MEDS: MUPIROCIN OINT 2%, 22GM TP SCH ×2 (05:49→18:00)
[2017-11-23 08:00] VITALS: BP 114/65
[2017-11-23] MEDS: LISINOPRIL 20 MG TABLET PO SCH ×2 (08:06→20:57)
[2017-11-23] MEDS: OFLOXACIN OPHTH 0.3%, 5ML EACHEYE SCH ×2 (08:06→20:57)
[2017-11-23] MEDS: ENOXAPARIN 40 MG/0.4 ML SQ SCH (08:06)
[2017-11-23] MEDS: MULTIVITAMINS/MINERALS TABLET PO SCH (08:06)
[2017-11-23] MEDS: AMLODIPINE 5 MG TABLET PO SCH (08:06)
[2017-11-23 15:45] VITALS: BP 110/63
[2017-11-23 20:15] VITALS: BP 123/75
[2017-11-24 01:48] VITALS: BP 98/61
[2017-11-24] MEDS: METOPROLOL TARTRATE 25 MG TABLET PO SCH ×2 (05:32→18:27)
[2017-11-24] MEDS: MUPIROCIN OINT 2%, 22GM TP SCH ×2 (05:44→18:00)
[2017-11-24 06:53] VITALS: BP 107/67
[2017-11-24 08:34] LABS: ANION GAP 9 mmol/L (5-15); CALCIUM 8.6 mg/dL (8.5-10.1); CHLORIDE 112 mmol/L (98-107); CREATININE 0.58 mg/dL (0.7-1.3)
[2017-11-24 08:54] LABS: BASOPHILS # (AUTO) 0.03 x10^3/uL (0-0.1); BASOPHILS % (AUTO) 0 % (0-1); EOSINOPHILS # (AUTO) 0.27 x10^3/uL (0-0.4); EOSINOPHILS % (AUTO) 4 % (1-7); LYMPHOCYTES # (AUTO) 1.76 x10^3/uL (1-3.4); LYMPHOCYTES % (AUTO) 25 % (22-44); MD SCAN; MEAN CORPUSCULAR HEMOGLOBIN 30.7 pg (27.5-34.5); MEAN CORPUSCULAR HGB CONC 32.7 g/dL (33.2-36.2); MEAN CORPUSCULAR VOLUME 93.7 fL (81-97); MEAN PLATELET VOLUME 8.8 fL (7.4-10.4); MONOCYTES # (AUTO) 0.43 x10^3/uL (0.2-0.8); MONOCYTES % (AUTO) 6 % (2-9); NEUTROPHILS # (AUTO) 4.53 x10^3/uL (1.8-6.8); NEUTROPHILS % (AUTO) 65 % (42-75); PLATELET COUNT 275 x10^3/uL (130-400); RED BLOOD COUNT 3.23 x10^6/uL (4.38-5.82); RED CELL DISTRIBUTION WIDTH 18.9 % (9.4-14.8)
[2017-11-24] MEDS: AMLODIPINE 5 MG TABLET PO SCH (10:15)
[2017-11-24] MEDS: MULTIVITAMINS/MINERALS TABLET PO SCH (10:15)
[2017-11-24] MEDS: DOCUSATE 50 MG/5 ML, 10ML UDC PO PRN (10:16)
[2017-11-24] MEDS: LISINOPRIL 20 MG TABLET PO SCH ×2 (10:16→21:01)
[2017-11-24] MEDS: ENOXAPARIN 40 MG/0.4 ML SQ SCH (10:16)
[2017-11-24] MEDS: OFLOXACIN OPHTH 0.3%, 5ML EACHEYE SCH ×2 (10:21→21:02)
[2017-11-24 15:00] VITALS: BP 93/57
[2017-11-24 15:10] VITALS: BP 93/57
[2017-11-24 19:03] VITALS: BP 114/76
[2017-11-25 01:04] VITALS: BP 102/59
[2017-11-25] MEDS: METOPROLOL TARTRATE 25 MG TABLET PO SCH (06:03)
[2017-11-25] MEDS: MUPIROCIN OINT 2%, 22GM TP SCH (06:04)
[2017-11-25 08:00] VITALS: BP 115/70
[2017-11-25] MEDS: MULTIVITAMINS/MINERALS TABLET PO SCH (09:04)
[2017-11-25] MEDS: AMLODIPINE 5 MG TABLET PO SCH (09:04)
[2017-11-25] MEDS: OFLOXACIN OPHTH 0.3%, 5ML EACHEYE SCH (09:04)
[2017-11-25] MEDS: LISINOPRIL 20 MG TABLET PO SCH (09:04)
[2017-11-25] MEDS: ENOXAPARIN 40 MG/0.4 ML SQ SCH (09:05)
[2017-11-25] MEDS ORDERED: LISI-170 PO (09:22)
[2017-11-25] MEDS ORDERED: AMLO5TAB7 PO (09:22)
[2017-11-25] MEDS ORDERED: MULT-484 PO (09:22)
[2017-11-25] MEDS ORDERED: METO25TA35 PO (09:22)
[2017-11-25] MEDS ORDERED: MUPI22OI2 TP (09:22)
== END 2017-11-25 15:42 | DRG 871 ==
LOC: ED 17:26 → EDIP 17:27 → ED 18:49 → 4EST 19:02 → 3NE 10-12 23:13
PROVIDERS: ADMIT Internal Medicine; ATTEND Family Medicine
PROC: 02H633Z Insertion of Infusion Device into Right Atrium, Percutaneous Approach (ICD-10-PCS; principal; 2017-10-10)
PROC: B244ZZZ Ultrasonography of Right Heart (ICD-10-PCS; 2017-10-10)
PROC: 0T9B70Z Drainage of Bladder with Drainage Device, Via Natural or Artificial Opening (ICD-10-PCS; 2017-10-10)
DX: A41.9 Sepsis, unspecified organism (principal); L89.303 Pressure ulcer of unspecified buttock, stage 3; L89.153 Pressure ulcer of sacral region, stage 3; E43 Unspecified severe protein-calorie malnutrition; L03.116 Cellulitis of left lower limb; L03.115 Cellulitis of right lower limb; N39.0 Urinary tract infection, site not specified; M86.8X9 Other osteomyelitis, unspecified sites; Z88.2 Allergy status to sulfonamides; Z68.23 Body mass index [BMI] 23.0-23.9, adult; B95.62 Methicillin resistant Staphylococcus aureus infection as the cause of diseases classified elsewhere; B96.20 Unspecified Escherichia coli [E. coli] as the cause of diseases classified elsewhere; E78.5 Hyperlipidemia, unspecified; E86.0 Dehydration; F03.90 Unspecified dementia, unspecified severity, without behavioral disturbance, psychotic disturbance, mood disturbance, and anxiety; G20 Parkinson's disease; G40.909 Epilepsy, unspecified, not intractable, without status epilepticus; I10 Essential (primary) hypertension; L89.899 Pressure ulcer of other site, unspecified stage; Z16.12 Extended spectrum beta lactamase (ESBL) resistance; Z51.5 Encounter for palliative care; Z66 Do not resuscitate; Z74.01 Bed confinement status; Z86.14 Personal history of Methicillin resistant Staphylococcus aureus infection; Z86.73 Personal history of transient ischemic attack (TIA), and cerebral infarction without residual deficits
CPT/HCPCS: 36415; 36569; 71045; 76937; 77001; 80048; 80053; 81001; 82040; 82565; 82962; 83605; 83735; 84100; 84145; 84520; 85025; 85651; 86141; 87040; 87070; 87077; 87086; 87106; 87186; 87205; 93005; 96374; G0378; J0696; J1644; J1650; J2185; J2405; J2543; J3370; J3490; Q0169; 92523-GN; C1751; J1200; J2020; J7030